=== PATIENT | male | born 1955 | race Two or more races ===

== ENCOUNTER 2017-12-14 13:29 | Outpatient (CLI) | payer BC ==
[~2017-12-14 13:29] MED LIST: ALLEGRA ALLERG180 MG PO; ALPRAZOLAM ODT1 MG; GILTUSS TR TAB1 EACH PO; NEXIUM40 M1; VITAMIN C60 MG; XANAX1 MG; XANAX1 MG PO; ZOVIRAX5 GM TOP; ZOVIRAX800 MG PO
== END 2017-12-14 13:36 | disposition home or self-care (01) ==
LOC: RAD 13:29
DX: Z00.00 Encounter for general adult medical examination without abnormal findings (principal)

== ENCOUNTER 2018-01-19 14:07 | Outpatient (CLI) | payer BC | END 2018-01-19 14:15 | disposition home or self-care (01) | LOC: LAB 14:07 | DX: N30.00 Acute cystitis without hematuria (principal); R82.79 Other abnormal findings on microbiological examination of urine ==

== ENCOUNTER → 2018-02-03 | Emergency (ER) | payer BC ==
[~2018-02-03] VITALS: Ht 185.4 cm; Wt 90.7 kg
== END | disposition home or self-care (01) ==
LOC: ER 08:17
DX: R20.8 Other disturbances of skin sensation (principal); J02.9 Acute pharyngitis, unspecified; W86.8XXS Exposure to other electric current, sequela

== ENCOUNTER → 2018-02-15 11:59 | Outpatient (CLI) | payer BC | END | disposition home or self-care (01) | LOC: LAB 11:59 | DX: N30.00 Acute cystitis without hematuria (principal) ==

== ENCOUNTER 2018-08-26 10:12 | Outpatient (CLI) | payer BC | END 2018-08-26 11:38 | disposition home or self-care (01) | LOC: NUCLEAR 10:12 | DX: I20.1 Angina pectoris with documented spasm (principal) ==

== ENCOUNTER 2019-03-14 16:47 | Outpatient (CLI) | payer BC | END 2019-03-14 17:47 | disposition home or self-care (01) | LOC: RAD 16:47 | DX: M25.562 Pain in left knee (principal); S83.102A Unspecified subluxation of left knee, initial encounter ==

== ENCOUNTER 2019-03-21 07:09 | Outpatient (CLI) | payer BC | END 2019-03-21 07:17 | disposition home or self-care (01) | LOC: MRI 07:09 | DX: M25.562 Pain in left knee (principal) | CPT/HCPCS: 73721 ==

== ENCOUNTER → 2019-10-27 | Outpatient (CLI) | payer BC | END | disposition home or self-care (01) | LOC: RAD 08:38 | DX: R05 Cough (principal) ==